=== PATIENT | male | born 1955 | race Caucasian/White ===

== ENCOUNTER 2023-10-11 00:02 | Emergency (ER) | payer MEDICARE, SELFPAY ==
--- NOTE | 2023-10-11 00:22 | ED.GENADULT ---
HPI - General Adult General Time Seen by Provider: 00:23 Date Seen: 10/11/23 Chief complaint: Unspecified Complaint, Adult Stated complaint: cough Time Seen by Provider: 10/11/23 00:15 Source: patient, EMS and RN notes reviewed Mode of arrival: ambulatory Limitations: no limitations History of Present Illness HPI narrative: 68-year-old male brought in today by EMS for behavioral health evaluation. By report, patient was loitering at a truck stop and police were called. Patient says he recently staying at a hotel in [place] that was set up by the [facility] [employer], says he took a cab to the truck stop in [place] today. He is unable to tell me much more history, does say that he has a history of high blood pressure and takes medication. I did review patient's most recent clinic follow-up from October 08, at that time patient was seen for diabetes as well as cellulitis of the bilateral lower extremities and was started on Keflex, on gabapentin for neuropathy. Reviewed patient's most recent hospital admission September 30 to and prior to that September 19 to for cellulitis. At the emergency department visit September 30 appears he had defecated on himself and was brought to the emergency department for re-evaluation. At that admission patient was noted to have delusions and paranoia, was evaluated by Psychiatry and started on Haldol 1 mg b.i.d. which he has not been taking by his report. Related Data Home Medications Medication Instructions Recorded Confirmed benazepril 20 mg tablet 20 mg PO DAILY 10/11/23 10/11/23 cephalexin .ROUTE 10/11/23 gabapentin 300 mg capsule 300 mg PO DAILY 10/11/23 10/11/23 glimepiride 2 mg tablet 2 mg PO DAILY 10/11/23 10/11/23 Allergies Allergy/AdvReac Type Severity Reaction Status Date / Time No Known Drug Allergies Allergy Verified 10/11/23 00:42 [facility] Medical History (Updated 10/11/23 @ 01:56 by Bear Owen MD) Type 2 diabetes mellitus ?E11.9 - Type 2 diabetes mellitus without complications (ICD-10) Social History Smoking Status: Unknown if ever smoked Non-prescribed substance use: denies use Exam Narrative: Exam Narrative: General: Well-developed and well-nourished, no acute distress Head: Atraumatic and normocephalic Eyes: Pupils are equal reactive, extraocular motions intact, conjunctiva clear ENT: External nose and ears are normal, posterior pharynx without erythema or exudate Neck: No midline cervical tenderness, full spontaneous range of motion the neck, trachea midline, no adenopathy Heart: Regular rate and rhythm no murmurs or thrills Lungs: Clear to auscultation bilaterally without wheezes or crackles Abdomen: Soft, nontender, nondistended with active bowel sounds Musculoskeletal: No tenderness, deformity, bilateral lower extremity edema with erythema of the posterior lower legs bilaterally Neurologic: Awake, alert, and oriented x3, no gross focal neurologic deficits, cranial nerves intact as tested Psych: Some paranoia and delusions of persecution, denies suicidal or homicidal ideation Skin: Lower legs covered with feces Const: Vital Signs, click to edit/add: Vital Signs - 24 hr 10/11/23 00:32 10/11/23 06:59 Temperature 97.9 F Pulse Rate [Pulse Oximeter] 93 Respiratory Rate 18 16 Blood Pressure [Ri ght Upper Arm] 140/84 H Pulse Oximetry 97 Oxygen Delivery Me thod Room Air Course Course ED Course: Patient seen examined, prior inpatient records from September 30 as well as September 19- reviewed. Patient presents today for mental health evaluation. Based on reviewing prior notes, it appears he is his baseline with paranoia and it appears he has had some fecal incontinence in the past as well. On my exam his lower legs are covered with feces and his pants are soaked with urine. Labs ordered and mental health evaluation requested. Social determine of health including homelessness and noncompliance. Reevaluation(s) Time of Reevaluation #1: 00:47 Reevaluation #1: I did further review patient's recent admission September 19 through at [facility]. Per psychiatry note, delusions and paranoia are patient's baseline for the last 4-5 years, attempts at mental health discussion or outpatient treatment have not been fruitful as patient does not follow up, it appears breathe petition screening for commitment has been considered but as patient has been compliant with cares and declines mental health surge cysts, is not a danger to himself or others, no commitment has been sought. Patient is declining medical fdc bed the past. Time of Reevaluation #2: 01:29 Reevaluation #2: Labs independently interpreted by me with reassuring basic metabolic panel, normal hepatic panel, negative alcohol level, COVID positive but no respiratory distress, fever, cough, urine drug screen negative and urinalysis normal. Mental health assessment pending. Time of Reevaluation #3: 01:53 Reevaluation #3: Discussed with mental health principal clerk typist, patient does not want outpatient services and does not qualify for inpatient treatment. COVID positive limits options for fdc bed or respite bed. Patient will likely need to stay in the emergency department overnight with plan for discharge tomorrow. Additional Reevaluation(s): 7:35 a.m. patient has left his night without complaints. He is stable for discharge as long as we can find a suitable discharge path him. Vital Signs Vital signs: Initial Vital Signs Temperature 97.9 F 10/11/23 00:32 Temperature Source Temporal Artery Scan 10/11/23 00:32 Pulse Rate 93 10/11/23 00:32 Respiratory Rate 18 10/11/23 00:32 Blood Pressure 140/84 H 10/11/23 00:32 Blood Pressure Mean 102 10/11/23 00:32 Blood Pressure Position Sitting 10/11/23 00:32 Pulse Oximetry 97 10/11/23 00:32 Oxygen Delivery Method Room Air 10/11/23 00:32 Vital Signs Temperature 97.9 F 10/11/23 00:32 Pulse Rate 93 10/11/23 00:32 Respiratory Rate 18 10/11/23 00:32 Blood Pressure 140/84 H 10/11/23 00:32 Pulse Oximetry 97 10/11/23 00:32 Oxygen Delivery Method Room Air 10/11/23 00:32 Temperature 97.9 F 10/11/23 00:32 Pulse Rate 93 10/11/23 00:32 Respiratory Rate 16 10/11/23 06:59 Blood Pressure 140/84 H 10/11/23 00:32 Pulse Oximetry 97 10/11/23 00:32 Oxygen Delivery Method Room Air 10/11/23 00:32 Medical Decision Making Lab Data Labs: Lab Results 10/11/23 10/11/23 10/11/23 Range/Units 00:30 00:36 00:45 Sodium 138 (135-149) mmol/L Potassium 4.8 (3.6-5.1) mmol/L Chloride 104 (96-114) mmol/L Carbon Dioxide 24 (20-32) mmol/L Anion Gap 10 (7-15) mEq/L BUN 19 (7-30) mg/dL Creatinine 1.0 (0.5-1.5) mg/dL Estimated Creat Clear 76.52 Estimated GFR 81 ml/min Glucose 101 (60-115) mg/dL Calcium 9.2 (8.4-10.6) mg/dL Total Bilirubin 0.7 (0.1-1.5) mg/dL Direct Bilirubin 0.3 (0.0-0.5) mg/dL AST 27 (12-35) U/L ALT 19 (4-50) U/L Alkaline Phosphatase 69 (40-150) U/L Total Protein 7.5 (6.0-8.3) g/dL Albumin 4.0 (3.3-5.0) g/dL Urine Color Yellow (Yellow) Urine Appearance Clear (Clear) Urine pH 5.5 (5.0-8.5) Ur Specific [place] 1.010 (1.000-1.030) Urine Protein Negative (Negative) Urine Glucose (UA) Negative (Negative) Urine Ketones Negative (Negative) Urine Blood Negative (Negative) Urine Nitrite Negative (Negative) Urine Bilirubin Negative (Negative) Urine Urobilinogen 1.0 (0.2-1.0) Ur Leukocyte Esterase Negative (Negative) Urine RBC 0-2 (0-2) Urine WBC 0-2 (0-5) Ur Squamous Epith Cells None (None-Few) Urine Bacteria None (None) Urine Opiates Screen Negative (Negative) Ur Oxycodone Screen Negative (Negative) Urine Methadone Screen Negative (Negative) Ur Propoxyphene Screen Negative (Negative) Ur Barbiturates Screen Negative (Negative) U Tricyclic Antidepress Negative (Negative) Ur Phencyclidine Scrn Negative (Negative) Ur Amphetamines Screen Negative (Negative) U Methamphetamines Scrn Negative (Negative) U Benzodiazepines Scrn Negative (Negative) Urine Cocaine Screen Negative (Negative) U Marijuana (THC) Screen Negative (Negative) Ur Drug Screen Comment See Note Ethyl Alcohol < 0.01 L (0.01-0.03) % SARS-CoV-2 (PCR) POSITIVE SARS-CoV-2 A (Negative) Discharge Plan Discharge Clinical Impression: Bilateral edema of lower extremity, COVID-19, Paranoia Patient Disposition: Home, Self-Care Condition: Stable Instructions: Leg Edema (ED), COVID-19 (Coronavirus Disease 2019) (ED) Activity Level: Activity as Tolerated Discharge Diet: Regular Prescriptions: No Action glimepiride 2 mg tablet 2 mg PO DAILY benazepril 20 mg tablet 20 mg PO DAILY gabapentin 300 mg capsule 300 mg PO DAILY cephalexin .ROUTE Follow Up/Referrals: Provider,Not a Local [Primary Care Provider] - Stand Alone Forms: itzat Info Instructions
[2023-10-11 00:32] VITALS: BP 140/84; PULSE 93; RESP 18; TEMP 36.6; O2SAT 97; BMI 28.2
[2023-10-11 00:50] LABS: Appearance Urine Clear (Clear); Bilirubin Urine Negative (Negative); Blood Urine Negative (Negative); Color Urine Yellow (Yellow); Glucose Urine Negative (Negative); Ketones Urine Negative (Negative); Leukocyte Esterase Urine Negative (Negative); Nitrite Urine Negative (Negative); Protein Urine Negative (Negative); pH Urine 5.5 (5.0-8.5)
[2023-10-11 00:57] LABS: Amphetamine Screen Urine Negative (Negative); Barbiturate Screen Urine Negative (Negative); Benzodiazepines Screen Urine Negative (Negative); Cannabinoid Screen Urine Negative (Negative); Cocaine Screen Urine Negative (Negative); Methadone Screen Urine Negative (Negative); Methamphetamines Screen Urine Negative (Negative); Opiate Screen Urine Negative (Negative); Oxycodone Screen Urine Negative (Negative); Phencyclidine Screen Urine Negative (Negative); Tricyclic Antidepressant Urine Negative (Negative)
[2023-10-11 01:00] LABS: RBC Urine 0-2 (0-2); WBC Urine 0-2 (0-5)
[2023-10-11 01:10] LABS: Chloride* 104 mmol/L (96-114); Potassium* 4.8 mmol/L (3.6-5.1); Sodium* 138 mmol/L (135-149)
[2023-10-11 01:12] LABS: Est. Creatinine Clearance* 76.52; Estimated Glomerular Filt Rate 81 ml/min
[2023-10-11 01:13] LABS: Alanine Aminotransferase* 19 U/L (4-50); Alkaline Phosphatase* 69 U/L (40-150); Anion Gap 10 mEq/L (7-15); Aspartate Amino Transferase* 27 U/L (12-35); Bilirubin Direct* 0.3 mg/dL (0.0-0.5); Bilirubin Total* 0.7 mg/dL (0.1-1.5); Blood Urea Nitrogen* 19 mg/dL (7-30); Calcium* 9.2 mg/dL (8.4-10.6); Carbon Dioxide* 24 mmol/L (20-32); Glucose* 101 mg/dL (60-115); Total Protein* 7.5 g/dL (6.0-8.3)
[2023-10-11 01:17] LABS: SARS PCR* POSITIVE SARS-CoV-2 (Negative)
[2023-10-11 01:18] LABS: Ethanol* < 0.01 % (0.01-0.03)
--- NOTE | 2023-10-11 02:03 | ED.NURSE ---
pt brought to med surg room to shower and change into clean clothes.
[2023-10-11 06:59] VITALS: RESP 16
[2023-10-11 08:01] VITALS: BP 128/91; PULSE 83; RESP 18; TEMP 36.9; O2SAT 95
--- NOTE | 2023-10-11 08:28 | ED.NURSE ---
is speaking to Tererro about what the plan will be after discharge. is eating breakfast. is alert and oriented. wants to live in a homeless alf. has no ride.
--- NOTE | 2023-10-11 08:51 | ED.NURSE ---
wounds on lower extremeties dressed with bacitracin, telfa and/or mei and coban.
== END 2023-10-11 10:27 | disposition home or self-care (01) ==
PROVIDERS: Emergency Provider Family Medicine
DX: U07.1 COVID-19 (principal); R60.9 Edema, unspecified; F22 Delusional disorders
CPT/HCPCS: 36415; 80048; 80076; 80306; 81001; 82077; 87635; 99283; 99284